=== PATIENT | male | born 1940 | race Caucasian/White ===

== ENCOUNTER 2018-04-01 09:11 | Outpatient (CLI) | payer MEDICARE, BC ==
--- NOTE | 2018-04-01 12:06 | CT ---
CT ABDOMEN WITH AND WITHOUT IV CONTRAST CT PELVIS WITH AND WITHOUT IV CONTRAST: DATE: 04/01/18. HISTORY: Benign prostatic hyperplasia, hematuria. COMPARISON: 09/10/06. FINDINGS: There has been interval development of an 11 mm x 8 mm calculus in the left renal pelvis. There is a n approximately 2 mm nonobstructing calculus in the junction mid portion inferior pole right kidney. There is also a calcification in the superior pole right kidney, but this may actually represent a s mall vascular calcification. No ureteral calculi are visualized, and there is no evidence of hydrone phrosis. There are exophytic increased density lesions at the inferior pole left kidney related to Bosniak typ e II renal cystic lesions, the largest anteriorly within the left kidney measuring 1.4 cm. There are additional subcentimeter too small to characterize hypodense lesions within the left kidney with a s mall low density too small to characterize hypodense lesion in the superior pole right kidney. No en hancing renal mass is present. There is dependent bibasilar atelectasis with calcified granulomata seen at the right lung base. Vascular calcifications are seen in the coronary arteries as well as involving the limited visualized thoracic aorta and abdominal aorta and iliac arteries. There is focal mild aneurysmal dilatation of the infrarenal abdominal aorta which measures 3 cm in maximal AP dimensions. Proximal internal alejandro c arteries are ectatic. Post cholecystectomy changes are noted. Calcified granulomata are seen in the spleen. The pancreas, bilateral adrenal glands, and urinary bladder demonstrate a normal CT appearance. Ther e is a suggestion of mild thickening involving the lateral espinoza of the urinary bladder, but this is felt to more likely be related to incomplete distention. There is colonic diverticulosis present. Postsurgical changes related to right hemicolectomy are not ed. No dilated loops of small bowel are seen. Multilevel degenerative changes are seen in the spine. There is mild scoliotic curvature of the thor acolumbar spine. Very small fat-containing umbilical hernia is noted. IMPRESSION: 1. Nonobstructing calculus left renal pelvis measuring 11 mm x 8 mm. 2. Nonobstructing right renal calculus. 3. Bosniak type II left renal cystic lesions with subcentimeter too small to characterize hypodense lesions in each kidney. 4. Post cholecystectomy changes. 5. Vascular calcifications with focal infrarenal abdominal aortic aneurysm measuring 3 cm in diamete r. 6. Colonic diverticulosis. 7. Tiny fat-containing umbilical hernia. 8. Low density area in the region of the right inguinal canal which could be related to prior hernia repair. Clinical correlation is recommended. POS: BRANDIE
== END 2018-04-01 09:12 | disposition home or self-care (01) ==
LOC: CT 09:11
PROVIDERS: ATTEND Urology
DX: N40.1 Benign prostatic hyperplasia with lower urinary tract symptoms (principal); R31.29 Other microscopic hematuria; N28.1 Cyst of kidney, acquired; N28.89 Other specified disorders of kidney and ureter; I71.4 Abdominal aortic aneurysm, without rupture; K57.30 Diverticulosis of large intestine without perforation or abscess without bleeding; K42.9 Umbilical hernia without obstruction or gangrene; Z90.49 Acquired absence of other specified parts of digestive tract
CPT/HCPCS: 36415; 74178; 80048; 81001; 82565; 87086

== ENCOUNTER 2018-04-06 05:59 | Day surgery (SDC) | payer MEDICARE, BC ==
[2018-04-05 10:29] VITALS: BMI 31.8
[2018-04-06] MEDS ORDERED: Levofloxacin 500 mg/D5W 100 ml Premix Bag ONE (06:16)
[2018-04-06] MEDS ORDERED: Fentanyl 100 MCG/2 ML VIAL ONE ×2 (06:46)
[2018-04-06 07:08] LABS: #Eosinphils 0.2 thou/uL (0.0-0.7); #Lymphocytes 1.1 thou/uL (1.20-3.40); #Monocytes 0.3 thou/uL (0.11-0.59); #Neutrophils 3.6 thou/uL (1.40-6.50); %Basophils 0.4 % (0.0-1.0); %Eosinophils 4.2 % (0.0-10.0); %Lymphocytes 20.3 % (21.0-51.0); %Monocytes 6.1 % (0.0-10.0); Hemoglobin 12.9 g/dL (14.0-18.0); Mean Corpuscular Volume 94.3 fL (78.0-98.0); Mean Platelet Volume 7.8 fL (7.4-10.4); Platelet Count 144 thou/uL (130-400); RBC Distribution Width 11.2 % (11.5-14.5); White Blood Cell (WBC) Count 5.3 thou/uL (4.8-10.8)
[2018-04-06 07:15] LABS: INR-International Normal Ratio 1.1; PTT 45.9 SEC (22.9-36.1); Prothrombin Time 14.8 SEC (12.0-14.7)
[2018-04-06 07:30] LABS: Anion Gap 10 mmol/L (10-20); BUN (Urea Nitrogen) 36 mg/dL (8.4-25.7); Calc. Creatinine Clearance 41 mL/min (70-130); Calcium 8.8 mg/dL (7.8-10.44); Carbon Dioxide 25 mmol/L (23-31); Chloride 109 mmol/L (98-107); Estimated GFR-MDRD 35; Glucose 96 mg/dL (83-110); Sodium 140 mmol/L (136-145)
[2018-04-06] MEDS ORDERED: Iothalamate Meglumine 60% 50 ML VIAL FS ONE (07:41)
--- NOTE | 2018-04-06 08:22 | RAD ---
ABDOMEN 1 VIEW: Date: 04/06/18 HISTORY: 78-year-old male with left renal stone. COMPARISON: 04/01/18 CT. FINDINGS: 0.8 x 1.1 cm diameter left renal calculus, showing little change from prior CT. Postoperative changes in the right side of the abdomen. Lumbar spine spondylosis with levoscoliosis of the upper lumbar/lo wer thoracic vertebral column, Multiple calcified phleboliths in the pelvis. No overt ureteral calcul us. IMPRESSION: Stable appearing left renal calculus. POS: BRANDIE
[2018-04-06] MEDS ORDERED: Phenazopyridine HCl 97.5 MG TABLET ONE ×2 (09:32)
[2018-04-06] MEDS ORDERED: Oxybutynin 5 MG TAB ONE (09:32)
--- NOTE | 2018-04-06 10:48 | OP ---
DATE OF PROCEDURE: 04/06/2018 PREOPERATIVE DIAGNOSES: 1. A 78-year-old male with history of BPH. 2. History of microscopic hematuria. 3. History of right punctate renal lithiasis. 4. Left renal pelvic stone measuring 11 mm x 8 mm, Hounsfield unit 940. 5. Incidental left anterior 1.4 cm Bosniak II hyperdense renal cyst. POSTOPERATIVE DIAGNOSES: 1. A 78-year-old male with history of BPH. 2. History of microscopic hematuria. 3. History of right punctate renal lithiasis. 4. Left renal pelvic stone measuring 11 mm x 8 mm, Hounsfield unit 940. 5. Incidental left anterior 1.4 cm Bosniak II hyperdense renal cyst. PROCEDURES: Cystoscopy, bilateral retrograde pyelogram, left balloon dilatation of the distal ureter, flexible ureteroscopy, pyeloscopy, laser lithotripsy of large renal pelvic stone, basket extraction of stone, 6 x 24 double-J ureteral stent placement with distal tail in situ. SURGEON: Colleen Albarran D.O. ANESTHESIA: General. COMPLICATIONS: None apparent. ESTIMATED BLOOD LOSS: None. IV FLUIDS: 800 mL. DISPOSITION: To recovery room extubated in stable condition. SPECIMEN: Stone fragment for chemical analysis. INDICATIONS FOR THE PROCEDURE AND HISTORY: Mr. Fuller is a 78-year-old male with history of colon cancer, BPH on dual medical therapy, he was previously followed by Dr. Ricketts, and transferred care. Digital rectal exam is grossly unremarkable, patient presented with history of BPH on dual medical therapy, found to have microscopic hematuria in which CT of the abdomen and pelvis demonstrated right punctate renal lithiasis and left renal pelvic stone as above. The patient was scheduled for routine cystoscopy; however, due to discomfort due to the renal pelvic stone, presents today for evaluation. Risks and complications of the procedure was reviewed including, but not limited to bleeding, pain, infection, urosepsis, injury to adjacent organs such as ureter, bladder, kidney, possible secondary procedure, stricture formation, PE, DVT, perioperative morbidity and mortality was reviewed. The patient has been cleared by his salesperson [employer] to proceed. INTRAOPERATIVE FINDINGS: 1. Mild BPH. 2. Incidental bulbar stricture, wide caliber, approximately 20 Khmer. 3. Right retrograde pyelogram negative for obstructive component prompt excretion. Left retrograde pyelogram negative for obstructive component demonstrating a large left renal pelvic stone. DESCRIPTION OF THE PROCEDURE: After an informed consent is signed, the patient is taken to the operating room, placed in a dorsal lithotomy position with the genital area prepped and draped in the usual surgical sterile fashion. A 21- Khmer cystoscope was utilized. This was passed without difficulty. Incidentally noted is a wide caliber bulbar stricture in which the scope was able to be passed without difficulty. Bilobar hyperplasia of the prostate mildly obstructing was noted. There is a little component of a high median bar ; however, scope was passed without difficulty. The bladder was entered which demonstrated punctate stone in the dependent portion of the bladder. A right retrograde pyelogram was performed with a 5-Khmer dual-lumen catheter with 1:1 diluted contrast demonstrating no evidence of filling defect, hydronephrosis. There was prompt excretion of contrast from the right kidney. At this time we performed a left retrograde pyelogram demonstrating no evidence of hydronephrosis. There was a large left renal pelvic stone, nonobstructing. With the 5-Khmer open-ended catheter in place, a 0.35 sensor wire was placed into the left upper pole without difficulty. At this time, using a [employer] 12 Khmer 4 cm balloon dilator, we dilated the interim ureter with ease. We subsequently passed a 10 Khmer dual-lumen access catheter to the level of the proximal ureter without difficulty. A second safety wire, 0.35 Super Stiff wire was then placed. Over the Super Stiff wire, we placed an 11/ 13 Khmer x 46 cm navigator to the level of the mid ureter. There was some resistance passing proximally; therefore, I did not further pursue. With the navigator in place, a flexible ureteroscope was passed without difficulty to the level of the left renal pelvis. Collecting system was surveyed demonstrating a large renal pelvic stone. This was moved to the upper pole position and using 365 micron laser fiber, we fragmented the stone into multiple tiny debris. As the navigator was not up to proximally, we did obtain one specimen for chemical analysis. I did not want to basket multiple occasions as the navigator was not at the level of the proximal ureter. Therefore, using 365 micron laser fiber at the setting, we dusted the stone as much as we could. What remained were tiny punctate stone debris. He tolerated the procedure well. I anticipate he will pass most of the stone debris as they are very small in nature. The ureter was surveyed demonstrating no evidence of ureteral mucosal trauma or stone debris. The navigator and the flexible ureteroscope was completely removed and a 6 x 24 double-J ureteral stent was passed without difficulty. This was confirmed in a proper position with cystoscope and fluoroscopy. We then surveyed his bulbar urethral stricture. I did pass a subsequent 25 sheath which passed without difficulty. As it is wide caliber nonobstructing, I did not perform a DVIU at this time. The patient will be discharged home with Whigham 7.5/325 #50 one to two p.o. q.6 hours, AZO p.r.n., Colace p.r.n., VESIcare for a course of 14 days, ciprofloxacin for a course of 5 days and 1 p.o. 2 hours prior to appointment as I do anticipate cystoscopy stent pull. He will obtain a KUB an hour prior to his appointment. If no gross evidence of ureteral stone nidus, we will perform local cystoscopy stent pull. He was found to have an elevated calcium; however, this is diet induced, repeat calcium today is grossly unremarkable, PTH is pending. [facility]
--- NOTE | 2018-04-06 11:43 | RAD ---
RETROGRADE IVP: Date: 04/06/18 HISTORY: IVPRG, left renal calculi. COMPARISON: None. FINDINGS: Intraprocedural fluoroscopy was provided for Dr. Albarran. A total of 9 images were performed. The re is retrograde opacification of normal appearing right intra and extrarenal collecting system. The initial image demonstrates a density projecting over the left intrarenal collecting system. Retrograd e opacification demonstrates a filling defect, compatible with a left intrarenal calculus. Last image s demonstrate a double pigtail left ureteral stent. IMPRESSION: Fluoroscopy as above. POS: BRANDIE
[2018-04-06] MEDS ORDERED: Glycopyrrolate 0.2 MG/ML 5 ML SYRINGE ONE (13:21)
[2018-04-06] MEDS ORDERED: ePHEDrine/0.9% NaCl/PF SYRINGE 50 mg/10 ml ONE (13:21)
[2018-04-06] MEDS ORDERED: Ondansetron HCl/PF 4 MG/2 ML Vial ONE (13:21)
[2018-04-06] MEDS ORDERED: PROPOFOL 200 MG/20 ML VIAL ONE (13:21)
[2018-04-06] MEDS ORDERED: Dexamethasone 20 MG/5 ML VIAL ONE (13:21)
[2018-04-06] MEDS ORDERED: Lidocaine 1% PF 5 ML VIAL ONE (13:21)
[2018-04-07 15:31] LABS: Ionized Calcium 4.8 mg/dL (4.5-5.6)
== END 2018-04-06 11:43 | disposition home or self-care (01) ==
LOC: SDC 05:59
PROVIDERS: ATTEND Urology
PROC: 0T778DZ Dilation of Left Ureter with Intraluminal Device, Via Natural or Artificial Opening Endoscopic (ICD-10-PCS; principal; 2018-04-06)
PROC: 0TC48ZZ Extirpation of Matter from Left Kidney Pelvis, Via Natural or Artificial Opening Endoscopic (ICD-10-PCS; 2018-04-06)
PROC: BT14YZZ Fluoroscopy of Kidneys, Ureters and Bladder using Other Contrast (ICD-10-PCS; 2018-04-06)
DX: N20.0 Calculus of kidney (principal); I10 Essential (primary) hypertension; E78.00 Pure hypercholesterolemia, unspecified; M19.90 Unspecified osteoarthritis, unspecified site; N40.1 Benign prostatic hyperplasia with lower urinary tract symptoms; R35.0 Frequency of micturition; N28.1 Cyst of kidney, acquired; G43.909 Migraine, unspecified, not intractable, without status migrainosus; Z87.891 Personal history of nicotine dependence; Z79.52 Long term (current) use of systemic steroids; Z79.899 Other long term (current) drug therapy; Z79.82 Long term (current) use of aspirin
CPT/HCPCS: 52356; 74018; 74420; 80048; 82330; 82365; 83970; 85025; 85610; 85730; 88300; C1758; C1769; 36415; J0131; J1956; J3010; Q9961

== ENCOUNTER 2018-04-22 07:31 | Outpatient (CLI) | payer MEDICARE, BC ==
--- NOTE | 2018-04-22 09:04 | RAD ---
ABDOMEN ONE VIEW: HISTORY: A 78-year-old male with a history of renal calculi. COMPARISON: 04/06/2018 FINDINGS: Left ureteral stent in place. The previously noted 0.8 x 1.1 cm calculus is not definitely demonstra dania on this study, although there is gas and fecal material, which somewhat obscures the left kidney. Postoperative changes on the right. IMPRESSION: The large left renal calculus is not definitely evident on this study. Left ureteral stent in place. Continue short-term followup. POS: BRANDIE
== END 2018-04-22 07:32 | disposition home or self-care (01) ==
LOC: RAD 07:31
PROVIDERS: ATTEND Urology
DX: N20.0 Calculus of kidney (principal); Z96.0 Presence of urogenital implants
CPT/HCPCS: 74018

== ENCOUNTER 2019-02-08 08:18 | Outpatient (CLI) | payer MEDICARE, BC ==
--- NOTE | 2019-02-08 08:51 | RAD ---
EXAM: Abdomen one view: HISTORY: Renal calculi, hyperdense renal cyst COMPARISON: 04/22/2018 FINDINGS: Extensive spondylosis with some scoliosis. Postop cholecystectomy. Removal of the previously noted left ureteral stent. No evidence for large or small bowel obstruction. No free intraperitoneal air . No overt calculus. IMPRESSION: No acute process.
--- NOTE | 2019-02-08 09:19 | ULT ---
US Renal Bilateral STANDARD History: [M 20.0 renal calculi. N28.1 hyperdense renal cyst] Comparison: Ultrasound from 2006. Abdomen radiograph 2018. Findings: Right kidney measures 10.9 x 5.6 x 5.5 cm and left kidney measures 11.1 x 6.7 x 6.5 cm. The re is a 1.6 cm inferior pole exophytic left renal cyst. No calculi are appreciated. Urinary bladder is unremarkable. Impression: Exophytic left renal simple cyst. No evidence for obstructive uropathy.
== END 2019-02-08 08:19 | disposition home or self-care (01) ==
LOC: BICULT 08:18
PROVIDERS: ATTEND Urology
DX: N20.0 Calculus of kidney (principal); N28.1 Cyst of kidney, acquired
CPT/HCPCS: 36415; 74018; 76770; 80048; 81001; 87086

== ENCOUNTER 2019-12-20 10:22 | Outpatient (CLI) | payer MEDICARE ==
--- NOTE | 2019-12-20 11:14 | RAD ---
3 views of the left foot: 12/20/2019 COMPARISON: None HISTORY: Left foot pain, intermittent FINDINGS: There is mild enthesophyte formation at the origin of the plantar aponeurosis. There is mild degenerative change at the first metatarsal-phalangeal joint. No acute fracture or evid ence of dislocation is seen. IMPRESSION: No acute osseous abnormality.
== END 2019-12-20 10:23 | disposition home or self-care (01) ==
LOC: BICRAD 10:22
PROVIDERS: ATTEND Podiatrist
DX: M79.672 Pain in left foot (principal); R60.0 Localized edema

== ENCOUNTER 2020-10-26 07:42 | Outpatient (CLI) | payer MEDICARE ==
[2020-10-26 14:56] LABS: Bilirubin Neg (Negative); Blood, Urine Negative (Negative); Clarity Clear (Clear); Glucose, Urine (Dipstick) Normal (Negative); Ketone, Urine Negative (Negative); Leukocyte Negative (Negative); Nitrite Negative (Negative); Protein, Urine (Dipstick) Negative (Neg-Trace); Urobilinogen Normal mg/dL (Less than 2)
[2020-10-26 14:57] LABS: Hemoglobin 15.4 g/dL (14.0-18.0); Mean Corpuscular HGB CONC 33.3 G/DL (32.0-36.0); Mean Corpuscular Hemoglobin 31.5 PG (27.0-33.0); Mean Corpuscular Volume 94.5 fl (80.0-100.0); Mean Platelet Volume 11.4 fl (7.4-10.4); Platelet Count 170 10x3/uL (130-400); RBC Distribution Width 12.9 % (11.5-14.5); Red Blood Cell (RBC) Count 4.89 10x6/uL (4.40-5.80); White Blood Cell (WBC) Count 6.8 10x3/uL (4.5-11.0)
[2020-10-26 15:14] LABS: Anion Gap 14 mmol/L (10-20); BUN (Urea Nitrogen) 28 mg/dL (8.4-25.7); Calc. Creatinine Clearance 0 mL/min (70-130); Calcium 9.2 mg/dL (7.8-10.44); Carbon Dioxide 25 mmol/L (23-31); Chloride 103 mmol/L (98-107); Glucose 93 mg/dL (83-110); Potassium 4.4 mmol/L (3.5-5.1); Sodium 138 mmol/L (136-145)
[2020-10-26 15:16] LABS: Prothrombin Time 10.9 sec (9.5-12.1)
[2020-10-26 15:43] LABS: RBC/HPF 0-3 HPF (0-3)
[2020-10-26 15:44] LABS: Bacteria/HPF Rare-Few HPF (None Seen)
[2020-10-27 03:57] LABS: SARS-CoV-2 MS2 Positive; SARS-CoV-2 N Gene Negative; SARS-CoV-2 S Gene Negative; SARS-CoV-2 by NAA Not Detected (NotDetected); SARS-CoV-2 orf1ab Negative
== END 2020-10-26 07:43 | disposition home or self-care (01) ==
LOC: LABBT 07:42
PROVIDERS: ATTEND Urology
DX: Z01.818 Encounter for other preprocedural examination (principal); C18.2 Malignant neoplasm of ascending colon; N20.0 Calculus of kidney; N40.1 Benign prostatic hyperplasia with lower urinary tract symptoms; N35.919 Unspecified urethral stricture, male, unspecified site; N28.1 Cyst of kidney, acquired; R35.0 Frequency of micturition; R31.29 Other microscopic hematuria; Z20.822 Contact with and (suspected) exposure to COVID-19
CPT/HCPCS: 80048; 81001; 85027; 85610; 85730; 87086; 93005; U0003; U0005; 87635; 93010

== ENCOUNTER 2020-10-31 05:38 | Day surgery (SDC) | payer MEDICARE ==
[2020-10-29 11:56] VITALS: BMI 34.3
[2020-10-31] MEDS ORDERED: Levofloxacin 500 mg/D5W 100 ml Premix Bag ONE (06:11)
[2020-10-31] MEDS ORDERED: Fentanyl 100 MCG/2 ML VIAL ONE (06:53)
--- NOTE | 2020-10-31 07:55 | RAD ---
Exam: 1 view abdomen COMPARISON: 02/08/2019. HISTORY: Preoperative exam. Cystogram. FINDINGS: Nonspecific bowel gas pattern. Scattered fecal material in a nondistended, nondilated colon. Stable surgical clips in the right upper quadrant. There are punctate calcifications projecting over the left upper pole renal silhouette. Largest suspe cted calcification measures 0.4 cm. Questionable calcifications versus fecal debris projecting over the lower right renal silhouette. Bilateral pelvic phleboliths are noted. Stable degenerative changes of the lumbar spine. IMPRESSION: Suspected left renal calculus as described above. Transcribed Date/Time: 10/31/2020 8:10 AM
[2020-10-31] MEDS ORDERED: HYDROcodone/Acetaminophen 5/325 mg Tablet ONE ×2 (09:57→10:29)
[2020-10-31] MEDS ORDERED: PROPOFOL 200 MG/20 ML VIAL ONE (10:13)
[2020-10-31] MEDS ORDERED: Lidocaine 1% PF 5 ML VIAL ONE (10:13)
--- NOTE | 2020-10-31 12:14 | OP ---
DATE OF PROCEDURE: 10/31/2020 PRIMARY CARE PHYSICIAN: Dr. Iliana Gonzalez. PREOPERATIVE DIAGNOSIS: An 80-year-old male with history of benign prostatic hyperplasia on dual medical therapy for numerous years. IPSS score of 18. POSTOPERATIVE DIAGNOSIS: An 80-year-old male with history of benign prostatic hyperplasia on dual medical therapy for numerous years. IPSS score of 18. PROCEDURE PERFORMED: Cystoscopy, UroLift implant x4. ANESTHESIA: TIVA. COMPLICATIONS: None apparent. DISPOSITION: To recovery room in stable condition. INTRAOPERATIVE FINDINGS: 1. Bilobar hyperplasia of the prostate as previous. 2. Tortuous pendulous urethra, with nonobstructing stricture caliber about 16-Palauan, subsequently an 18-Palauan catheter passed without significant issues. INDICATIONS FOR PROCEDURE AND HISTORY: Mr. Fuller is an 80-year-old male with history of BPH, previously followed by Dr. Ricketts and has been on dual medical therapy for numerous years. His IPSS score is 18, the patient and desires to come off the medication and desires to proceed with minimally invasive approach, i.e., UroLift. Alternatives of the treatment have been fully discussed with the patient and in detail and he desires to proceed. DESCRIPTION OF PROCEDURE: After an informed consent was signed, the patient was taken to the operating room, placed in a dorsal lithotomy position with the genital area prepped and draped in the usual surgical sterile fashion. A 21-Palauan cystoscope was utilized, which demonstrated a pendulous tortuous penile urethra, although this was not appreciated on flexible cystoscopy under anesthesia with rigid. There was an occult urethral stricture, however, this appears to be nonobstructing caliber about 16-Palauan. We were able to negotiate past this without mucosal trauma and the prostatic urethra was staged demonstrating bilobar hyperplasia. Bladder was entered, which demonstrated the UOs well away from the bladder neck. At this time, we transitioned to the UroLift device with the obturator, and total of 4 implants were placed, two on the left, two on the right lateral lobe. At the end of the procedure, he had a great anterior channel created with open bladder neck. I re-staged his penile urethral stricture, scope was easily maneuvered back and forth, no mucosal trauma was appreciated. We removed the scope, and an 18-Palauan Barraza catheter was passed blindly, which passed without difficulty. As the patient desires to be discharged without an indwelling Barraza catheter if possible, I did not perform a DVIU, as it appeared to be nonobstructing with minimal mucosal trauma. The patient will be discharged with routine postop medications, will see me tomorrow for peak flow PVR. Job ID: [id number]
== END 2020-10-31 12:15 | disposition home or self-care (01) ==
LOC: SDC 05:38
PROVIDERS: ATTEND Urology
PROC: 0T7D8DZ Dilation of Urethra with Intraluminal Device, Via Natural or Artificial Opening Endoscopic (ICD-10-PCS; principal; 2020-10-31)
DX: N40.1 Benign prostatic hyperplasia with lower urinary tract symptoms (principal); R35.0 Frequency of micturition; N35.919 Unspecified urethral stricture, male, unspecified site; I10 Essential (primary) hypertension; E78.00 Pure hypercholesterolemia, unspecified; M19.90 Unspecified osteoarthritis, unspecified site; G43.909 Migraine, unspecified, not intractable, without status migrainosus; Z85.038 Personal history of other malignant neoplasm of large intestine; Z87.891 Personal history of nicotine dependence; Z79.82 Long term (current) use of aspirin; Z79.899 Other long term (current) drug therapy
CPT/HCPCS: 74018; C9740; J1956; J2704; J3010; L8699